=== PATIENT | male | born 1995 | race Two or more races ===

== ENCOUNTER 2017-01-04 13:16 | Emergency (ER) | payer OTHER ==
[~2017-01-04] VITALS: Ht 182.9 cm; Wt 104.5 kg
[2017-01-04 13:49] VITALS: BP 145/89
--- NOTE | 2017-01-04 13:57 | PHYS DOC ---
Adult General Chief Complaint Chief Complaint: SEXUALLY TRANSMITTED DISEASE HPI HPI Patient presented emergency department for evaluation of painful urination for the past several days and he was told that his sexual partner tested positive for chlamydia and he is presenting for evaluation. No fevers chills abdominal pain back pain or discharge noted. Review of Systems Review of Systems Constitutional: Denies fever or chills [] GI: Denies abdominal pain, nausea, vomiting, bloody stools or diarrhea [] : + dysuria Current Medications Current Medications Current Medications Medications (Trade) Dose Ordered Sig/Peter Start Time Stop Time Status Last Admin Dose Admin Azithromycin (Zithromax) 1 gm 1X ONCE 01/04/17 14:00 01/04/17 14:01 Ceftriaxone Sodium (Rocephin Im) 250 mg 1X ONCE 01/04/17 14:00 01/04/17 14:01 Allergies Allergies Allergies Coded Allergies Type Severity Reaction Last Updated Verified No Known Drug Allergies 01/04/17 No Physical Exam Physical Exam Constitutional: Well developed, well nourished, no acute distress, non-toxic appearance. [] Abdomen: Bowel sounds normal, soft, no tenderness, no masses, no pulsatile masses. [] Skin: Warm, dry, no erythema, no rash. [] exam unremarkable EKG EKG [] Radiology/Procedures Radiology/Procedures [] Course & Med Decision Making Course & Med Decision Making Patient given Rocephin and Zithromax here and was told to have any partners treated and come back for any new or worsening symptoms. Patient aware and agreeable with plan. Dragon Disclaimer Dragon Disclaimer This chart was dictated in whole or in part using Voice Recognition software in a busy, high-work load, and often noisy Emergency Department environment. It may contain unintended and wholly unrecognized errors or omissions. Departure Departure: Impression: Primary Impression: STD exposure Disposition: HOME, SELF-CARE Condition: GOOD Referrals: PCP,UNKNOWN (PCP) Patient Instructions: Sexually Transmitted Disease JOSIE MARTIN DO Jan 04, 2017 13:57
[2017-01-04] MEDS ORDERED: CEFTRIAXONE IM 250 MG VIAL. IM ONE (14:00)
[2017-01-04] MEDS ORDERED: AZITHROMYCIN 1 GM PACKET PO ONE (14:00)
== END 2017-01-04 14:30 | disposition home or self-care (01) ==
LOC: ER 13:16
DX: Z20.2 Contact with and (suspected) exposure to infections with a predominantly sexual mode of transmission (principal)
CPT/HCPCS: 36415; 87491; 87591; 96372; 99284; J0456; J0696; 99283-25

== ENCOUNTER 2017-06-28 07:47 | Emergency (ER) | payer OTHER ==
[2017-06-28] MEDS ORDERED: IBUP200T58 PO (08:19)
[2017-06-28] MEDS ORDERED: FLUT9.9S NS (08:38)
[2017-06-28] MEDS ORDERED: AMOX500C PO (08:38)
--- NOTE | 2017-06-28 08:38 | PHYS DOC ---
Past History Past Medical History: No Pertinent History Past Surgical History: No Surgical History Alcohol Use: Occasionally Drug Use: None Adult General Chief Complaint Chief Complaint: HEADACHE HPI HPI Patient is a 22 year old M who presents with frontal headache associated with nasal congestion and drainage sore throat and cough. He's had these symptoms over the past 3-4 days and feels that they've been gradually worsening. He has no other associated symptoms. He has no other exacerbating or alleviating factors. Review of Systems Review of Systems Constitutional: Denies fever or chills [] Eyes: Denies change in visual acuity, redness, or eye pain [] HENT: Negative except history of present illness Respiratory: Denies cough or shortness of breath [] Cardiovascular: No additional information not addressed in HPI [] GI: Denies abdominal pain, nausea, vomiting, bloody stools or diarrhea [] : Denies dysuria or hematuria [] Musculoskeletal: Denies back pain or joint pain [] Integument: Denies rash or skin lesions [] Neurologic: Denies headache, focal weakness or sensory changes [] Endocrine: Denies polyuria or polydipsia [] Family History Family History Noncontributory Current Medications Current Medications Medications reviewed Allergies Allergies Allergies Coded Allergies Type Severity Reaction Last Updated Verified No Known Drug Allergies 01/04/17 No Physical Exam Physical Exam Constitutional: Well developed, well nourished, no acute distress, non-toxic appearance. [] HENT: Normocephalic, atraumatic, mild to moderate nasal erythema and edema and naris bilaterally with mild mucous noted, tonsillar enlargement with mild oral pharyngeal erythema, moderate tenderness to palpation over the frontal sinus Eyes: EOMI, conjunctiva normal, no discharge. [] Neck: Normal range of motion, no tenderness, supple, no stridor. [] Cardiovascular:Heart rate regular rhythm, no murmur [] Lungs & Thorax: Bilateral breath sounds clear to auscultation [] Abdomen: Bowel sounds normal, soft, no tenderness, no masses, no pulsatile masses. [] Skin: Warm, dry, no erythema, no rash. [] Neurologic: Alert and oriented X 3, normal motor function, normal sensory function, no focal deficits noted. [] Psychologic: Affect normal, judgement normal, mood normal. [] Current Patient Data Vital Signs Normal vital signs please review nursing documentation for specifics EKG EKG [] Radiology/Procedures Radiology/Procedures [] Course & Med Decision Making Course & Med Decision Making Pertinent Labs and Imaging studies reviewed. (See chart for details) Labs and imaging were declined His symptoms are most consistent with an upper respiratory infection associated with bacterial sinusitis. He was given his first dose of antibiotics in the ED. Dragon Disclaimer Dragon Disclaimer This chart was dictated in whole or in part using Voice Recognition software in a busy, high-work load, and often noisy Emergency Department environment. It may contain unintended and wholly unrecognized errors or omissions. Departure Departure: Impression: Primary Impression: Acute upper respiratory infection, unspecified Additional Impression: Acute bacterial sinusitis Disposition: HOME, SELF-CARE Condition: STABLE Referrals: PCP,UNKNOWN (PCP) Patient Instructions: Sinusitis, Upper Respiratory Infection, Adult Additional Instructions: Akhil was seen in the emergency department for headache. No emergency medical condition was found on history or physical exam. His symptoms are most consistent with an upper respiratory infection complicated by a bacterial sinusitis or sinus infection. He was advised to use nasal saline rinses and was given a prescription for nasal steroid spray. He was also started on antibiotic for the sinus infection. He is advised follow up with his primary care doctor in the next 3-5 days for further management. He was also advised return the emergency room if he develops new or worsening symptoms. Scripts Amoxicillin (AMOXICILLIN) 500 Mg Capsule 1 CAP PO TID for 7 Days, #21 CAP Prov: EMANUEL ROGERS MD 06/28/17 Fluticasone Propionate (Flonase Allergy Relief) 9.9 Ml [place].susp 1 SPRAYS NS BID for 7 Days, BOTTLE Prov: EMANUEL ROGERS MD 06/28/17 Problem Qualifiers EMANUEL ROGERS MD Jun 28, 2017 08:38
[2017-06-28] MEDS ORDERED: AMOXICILLIN 250 MG CAPSULE PO ONE (09:00)
[2017-06-28] MEDS ORDERED: IBUPROFEN 600 MG TABLET. PO ONE (09:00)
[2017-06-28 09:09] VITALS: BP 130/61
== END 2017-06-28 09:09 | disposition home or self-care (01) ==
LOC: ER 07:47
DX: J01.80 Other acute sinusitis (principal); B96.89 Other specified bacterial agents as the cause of diseases classified elsewhere
CPT/HCPCS: 99283